=== PATIENT | female | born 1965 | race Caucasian/White ===

== ENCOUNTER → 2018-09-07 | Outpatient (CLI) | payer OTHER ==
--- NOTE | 2018-09-07 13:35 | CONS ---
Assessment/Plan Assessment/Plan Hospital Course (Demo Recall) 53-year-old female with 1.5 months of right knee pain after twisting her knee. Her history, exam, radiographs are consistent with medial meniscus tear. She has no mechanical symptoms at this time and her pain and swelling have significantly decreased. At this time recommending conservative management. I did offer steroid injection to assist in decreasing inflammation and decreased pain. At this time the patient deferred the injection. The patient prefers to start with oral anti-inflammatories and physical therapy. Plan: Meloxicam Physical therapy If patient continues to have pain and unable to participate in therapy she will return to clinic to discuss steroid injection. Authorization for steroid injection was placed in case she will needed in the near future. Follow-up 12 weeks Consultation Date/Type/Reason Admit Date/Time Date of Consultation: Sep 07, 2018 Reason for Consultation Right knee pain Date/Time of Note DATE: 09/07/18 TIME: 11:53 Hx of Present Illness Is a 53-year-old female with a chief complaint of right knee pain. The pain began approximately 1.5 months ago after twisting her knee while going up stairs. At the time of injury she had immediate swelling. Denies any pop at the time. States swelling decreased over 3-4 days. The patients pain is in the medial aspect of the right knee. Pain is not radiating to the lower leg. Denies any mechanical symptoms. The pain was originally 8/10 but is now rated as a 3/10. Patient denies complaints of numbness or tingling. The pain is exacerbated by climbing stairs and ambulation. Pain is not relieved by NSAID's. Patient has been taking ibuprofen on a p.r.n. basis as well as using ice. Duration: 1.5-month Injury: Twisted knee Walking tolerance: 1 block since injury Limp: At time Support: No Swelling: Yes Crepitation: No Instability: No Stairs: Uses banister Physical Therapy: No Injections: No NSAIDs: Ibuprofen as needed Prior surgery: No Back pain: Yes, back injury 1998 Hip pain: No Risk of AVN : No Patient denies fever, chills, shortness of breath, chest pain, nausea/vomiting, constipation, diarrhea, numbness, and tingling. Past Medical History Diabetes GERD Headaches Fractured ribs History of blood transfusion Past Surgical History Emergency partial [id number] Family History Significant Family History: other (Patient is adopted does not know family history.) Social History Smoking Status: Former smoker Drug Use: none Other Social History Adopted Exam/Review of Systems Exam Vitals Weight: 200 pounds Height: 5 foot 5 inches Temperature: 90.2 Heart Rate: 86 Blood Pressure: 133/86 Respiratory Rate: 14 Exam General: Alert, oriented x3. No Acute Distress. Heart: Regular rate and rhythm. Lungs: No respiratory distress. No accessory muscle use. Musculoskeletal: Right Knee This is a well developed female who is alert, oriented times three and in no apparent distress. Skin is intact over the right knee as well as the lower extremity with no abrasions, lacerations, or ulcerations. Observation of the patient's gait reveals an antalgic gait with No thrust. Frontal plane alignment is neutral. There is pain on palpation of medial joint line. There is a trace effusion. Painful Allan's on the medial joint line. The patient demonstrates no grinding anteriorly with ROM. Range of motion: 0 extension to approximately 130 degrees of flexion with pain on hyperflexion. Collateral ligament testing reveals no instability with varus or valgus stress at 0 and 30 degrees of flexion. Negative Keturah's and negative posterior drawer. Neurovascularly intact with 5/5 EHL/tibialis anterior/gastroc. Sensation intact to light touch in a sural, saphenous, deep peroneal, superficial peroneal, medial and lateral plantar nerve distribution. Palpable, symmetric dorsalis pedis and posterior tibial pulses in both lower extremities. Hip examination normal. Imaging Imaging The patient received a standard set of films today that were personally reviewed. Imaging included a standing bilateral knee AP, PA flexion, merchant views and a dedicated lateral of the affected knee: There is neutral alignment of the knee. There is no loss of joint space in any compartment(s). There is no osteophyte formation. There is no subchondral sclerosis. There are no subchondral cysts. No fractures. Normal knee x-ray. MARE MEHTA MD Sep 07, 2018 12:03
--- NOTE | 2018-09-08 18:17 | RADRPT ---
PROCEDURE: XR Knees. CLINICAL INDICATION: Bilateral knee pain TECHNIQUE: 4 weightbearing views of the bilateral knees are available for review. COMPARISON: None available FINDINGS: There is no fracture. There is no dislocation. There is no lytic or blastic lesion. The articular surfaces are intact. There is no radiopaque foreign body. IMPRESSION: 1. Unremarkable bilateral knee x-ray series. 2. No acute fracture or dislocation is seen. RPTAT:[facility] Physician Evelyn Date Time Electronically viewed and signed by Physician Evelyn on 09/08/2018 18:17 /
== END | disposition home or self-care (01) ==
LOC: HKI 11:01
PROVIDERS: ATTEND Orthopaedic Surgery Adult Reconstructive Orthopaedic Surgery
DX: M25.561 Pain in right knee (principal)
CPT/HCPCS: 73564; Z7500; G0463